=== PATIENT | male | born 1955 | race Caucasian/White ===

== ENCOUNTER 2017-06-01 09:27 | Emergency (ER) | payer MEDICAID ==
[2017-06-01 09:43] VITALS: BMI 24.7
[2017-06-01 09:44] VITALS: RESP 18; O2SAT 100
--- NOTE | 2017-06-01 11:18 | C.PDOC ---
History Of Present Illness 61 year old male presents to the ER complaining of painful callus to the bottom of his right foot which has been present for one month. Patient denies having falls, injuries, and other complaints. Time Seen by Provider: 06/01/17 11:10 Chief Complaint (Nursing): Lower Extremity Problem/Injury History Per: Patient History/Exam Limitations: no limitations Onset/Duration Of Symptoms: Days Current Symptoms Are (Timing): Still Present Quality Of Symptoms: Painful Severity: Moderate Past Medical History Reviewed: Historical Data, Nursing Documentation, Vital Signs Vital Signs: Last Vital Signs Temp 97.5 F L 06/01/17 11:21 Pulse 74 06/01/17 11:21 Resp 18 06/01/17 11:21 BP 152/74 H 06/01/17 11:21 Pulse Ox 100 06/01/17 14:15 - Medical History PMH: Diabetes, HTN, Hypercholesterolemia Surgical History: No Surg Hx Family History: States: No Known Family Hx - Social History Hx Alcohol Use: No Hx Substance Use: No - Immunization History Hx Tetanus Toxoid Vaccination: No Hx Influenza Vaccination: No Hx Pneumococcal Vaccination: No Review Of Systems Except As Marked, All Systems Reviewed And Found Negative. Musculoskeletal: Positive for: Foot Pain Skin: Positive for: Other (callus to bottom of right foot) Physical Exam - Physical Exam Appears: Well, Non-toxic, No Acute Distress Skin: Normal Color, Warm, Dry, No Rash Head: Atraumatic, Normacephalic Eye(s): bilateral: Normal Inspection Neck: Supple Chest: Symmetrical Extremity: Normal ROM, Tenderness (mild tenderness to palpation in plantar surface between 2-3rd toe digits of right foot), Other (hyperkeratotic lesion to plantar surface between 2-3rd toe digits of right foot) Neurological/Psych: Oriented x3, Normal Speech, Normal Cognition, Normal Motor, Normal Sensation ED Course And Treatment O2 Sat by Pulse Oximetry: 100 (RA) Pulse Ox Interpretation: Normal Medical Decision Making Medical Decision Making: Patient with painful callus to right foot. No signs of foreign body, injury, cellulitis or infection. Rx given and recommend Dr Newby's gel or soft pads to use for pain support available over the counter. Disposition Counseled Patient/Family Regarding: Diagnosis, Need For Followup, Rx Given - Disposition Referrals: Podiatry Clinic [Outside] Disposition: HOME/ ROUTINE Disposition Time: 11:17 Condition: GOOD Additional Instructions: apply solution to callus of foot recommend Dr Newby's gel or soft pads to use for pain support available over the counter. Prescriptions: Salicylic Acid [Medicated [place] Removers] 1 each TP ONCE #1 adh..patch Instructions: Salicylic Acid (On the skin) Forms: [employer] (Fijian) - POA Present On Arrival: None - Clinical Impression Clinical Impression: Callus of foot - PA / CONFERENCE SERVICES DIRECTOR / Resident Statement MD/DO has reviewed & agrees with the documentation as recorded. - Scribe Statement The provider has reviewed the documentation as recorded by the Lillyibe Christal Koenig Provider Attestation All medical record entries made by the Lillyibjenifer were at my direction and personally dictated by me. I have reviewed the chart and agree that the record accurately reflects my personal performance of the history, physical exam, medical decision making, and the department course for this patient. I have also personally directed, reviewed, and agree with the discharge instructions and disposition.
[2017-06-01 11:22] VITALS: BP 152/74; PULSE 74; TEMP 97.5
== END 2017-06-01 11:22 | disposition home or self-care (01) ==
LOC: C.ER 09:27
DX: L84 Corns and callosities (principal); I10 Essential (primary) hypertension; E11.9 Type 2 diabetes mellitus without complications; E78.00 Pure hypercholesterolemia, unspecified